=== PATIENT | male | born 1955 | race Caucasian/White ===

== ENCOUNTER 2021-10-31 20:18 | Emergency (ER) | payer MEDICARE ==
[~2021-10-31 20:18] MED LIST: Iopamidol 370 76% 100 ML VIAL ONE; Sodium Chloride 0.9% 100 ML BAG ONE
[2021-10-31] MEDS ORDERED: Ondansetron PF 4 MG/2 ML Vial ONE (22:10)
[2021-10-31] MEDS ORDERED: Morphine 4 MG/ML VIAL ONE (22:10)
[2021-10-31] MEDS ORDERED: Sterile Water 10 ML ONE (22:15)
[2021-10-31] MEDS ORDERED: Sulfameth/Trimethoprim DS 800-160mg TAB ONE (22:15)
[2021-10-31] MEDS ORDERED: cefTRIAXone\\ROCEPHIN 1 GM VIAL ONE (22:15)
[2021-10-31 22:34] LABS: ALT (SGPT) 13 U/L (8-55); AST (SGOT) 14 U/L (5-34); Albumin 4.1 g/dL (3.4-4.8); Alkaline Phosphatase 45 U/L (40-110); Anion Gap 18 mmol/L (10-20); BUN (Urea Nitrogen) 20 mg/dL (8.4-25.7); Band 5 % (5-11); Bilirubin, Total 0.9 mg/dL (0.2-1.2); Calc. Creatinine Clearance 0 mL/min (70-130); Calcium 9.2 mg/dL (7.8-10.44); Carbon Dioxide 22 mmol/L (23-31); Chloride 100 mmol/L (98-107); Glucose 99 mg/dL (80-115); Hemoglobin 15.9 g/dL (14.0-18.0); Lymphocytes 7 % (21-51); MDiff Complete? YES; Mean Corpuscular HGB CONC 32.4 g/dL (32.0-36.0); Mean Corpuscular Hemoglobin 28.6 pg (27.0-31.0); Mean Corpuscular Volume 88.1 fL (78.0-98.0); Mean Platelet Volume 9.4 fL (7.4-10.4); Monocytes 5 % (0-10); Neutrophil 83 % (42-75); Platelet Count 155 thou/uL (130-400); Potassium 3.7 mmol/L (3.5-5.1); Protein, Total 7.1 g/dL (5.8-8.1); RBC Distribution Width 12.4 % (11.5-14.5); Red Blood Cell (RBC) Count 5.58 mill/uL (4.70-6.10); Sodium 136 mmol/L (136-145); White Blood Cell (WBC) Count 25.4 thou/uL (4.8-10.8)
[2021-11-01] MEDS ORDERED: HYDROcodone/Acetaminophen 5/325 mg Tablet ONE (00:42)
== END 2021-11-01 00:52 | disposition home or self-care (01) ==
LOC: MADERS 20:18
DX: L03.116 Cellulitis of left lower limb (principal)
CPT/HCPCS: 80053; 83605; 85025; 96365; 96375; J0696; J2270; J2405; J3490; Q9967